=== PATIENT | male | born 1950 | race Caucasian/White ===

== ENCOUNTER → 2019-12-26 11:20 | Outpatient (CLI) | payer MEDICARE, OTHER, SELFPAY ==
[2019-12-27 14:35] LABS: COVID19 Sendout Not Detected (Not Detect)
== END ==
PROVIDERS: PCP Family Medicine; Visit Provider Physician Assistant
DX: Z01.812 Encounter for preprocedural laboratory examination (principal)
CPT/HCPCS: 87635

== ENCOUNTER 2019-12-29 10:03 | Day surgery (SDC) | payer MEDICARE, OTHER, SELFPAY ==
--- NOTE | 2019-12-29 | PATH_ITS ---
[facility] Accession Number: [id number] . 01 Material submitted: . PART A: gastrointestinal site - Z-LINE PART B: colon - CECAL POLYP PART C: colon - ASCENDING COLON POLYP PART D: colon - DESCENDING COLON POLYP PART E: rectum - RECTAL POLYP . 01 Clinical history: . A: RULE OUT [facility] . 02 Diagnosis: A. Z-Line, Biopsy: Squamocolumnar junctional mucosa with no diagnostic abnormality. Negative for intestinal metaplasia. Negative for dysplasia and malignancy. . B. Cecum, Polyp, Biopsy: Tubular adenoma. . C. Ascending Colon, Polyp, Biopsy: Sessile serrated adenoma. . D. Descending Colon, Polyp, Biopsy: Hyperplastic polyp. . E. Rectum, Polyp, Biopsy: Inflammatory polyp. [facility] 01/03/2020 1258 Local . 02 Electronically signed: . Lala Herrera MD, Pathologist NPI- [id number] . 01 Gross description: . A. Specimen A is received in formalin, labeled Z-line and consists of a 0.2 x 0.2 x 0.2 cm silva fragment of soft tissue, which is entirely submitted in cassette A1. B. Specimen B is received in formalin, labeled cecal polyp and consists of three silva fragments of soft tissue, measuring 1.0 x 0.7 x 0.2 cm in aggregate. The specimen is entirely submitted in cassette B1. C. Specimen C is received in formalin, labeled ascending colon polyp and consists of two silva fragments of soft tissue, measuring 1.2 x 0.8 x 0.4 cm in aggregate. The specimen is entirely submitted in cassette C1. D. Specimen D is received in formalin, labeled descending colon polyp and consists of a 0.2 x 0.2 x 0.2 cm silva fragment of soft tissue, which is entirely submitted in cassette D1. E. Specimen E is received in formalin, labeled rectal polyp and consists of a 0.2 x 0.2 x 0.2 cm. silva fragment of soft tissue, which is entirely submitted in cassette E1. ([id number]) /[facility] 12/30/2019 1744 Local . 02 Pathologist provided ICD-10: D12.0, D12.2, K21.9 . 02 CPT . 833880, 420905, [id number], [id number], [id number] Performed at: 01 [facility] [address] [place] [address], [place], [place] [id number] MD Mike Craig MD Phone: [phone] Performed at: 02 [facility] [address] [place], [place] [id number] MD Lala Herrera MD Phone: [phone]
[2019-12-29 10:19] VITALS: BP 154/85; PULSE 78; RESP 16; TEMP 36.4; O2SAT 98; BMI 30.5
[2019-12-29] MEDS: SODIUM CHLORIDE 0.9% 1,000 ML 200 ML IV (10:33)
--- NOTE | 2019-12-29 11:00 | PM.HP.1 ---
History of Present Illness History of Present Illness [place] [facility] [place] History Family & Social History Social History: household members spouse Tobacco & Substance use: Smoking Status Never smoker alcohol intake current alcohol intake frequency a few times a week Substance Use Type marijuana Meds Home Medications and Allergies Home Medications Medication Instructions Recorded Confirmed Type finasteride 5 mg PO DAILY 12/29/19 12/29/19 History gabapentin 300 mg PO BID 12/29/19 12/29/19 History venlafaxine [Effexor XR] 150 mg PO DAILY 12/29/19 12/29/19 History zolpidem [Ambien] 10 mg PO BEDTIME 12/29/19 12/29/19 History Allergies Allergy/AdvReac Type Severity Reaction Status Date / Time No Known Drug Allergies Allergy Verified 12/29/19 10:16 Review of Systems Review of Systems ROS: Yes All systems reviewed with the patient and are negative except as otherwise documented Exam Vital Signs (past 8 hours): - 12/29/19 10:19 Temperature 97.6 F Pulse Rate 78 Respiratory Rate 16 Blood Pressure 154/85 H Pulse Oximetry 98 Oxygen Delivery Method Room Air Narrative Exam Narrative: Awake alert and oriented x3, pupils equal round reactive to light, oropharynx clear, heart regular rate and rhythm, lungs clear to auscultation bilaterally, abdomen nontender and nondistended, extremities without edema, no gross neurologic deficits noted Assessment & Plan Assessment & Plan narrative: GERD and due for colon cancer screening. EGD and colonoscopy today. COVID-19 COVID-19 status: Negative
[2019-12-29] MEDS: MIDAZOLAM 5 MG/5 ML VIAL IV ×2 (11:04→11:17)
[2019-12-29] MEDS: fentaNYL 250 MCG/5 ML INJ IV (11:04)
--- NOTE | 2019-12-29 11:11 | P.OP.ENDO_ITS ---
Operative Date/Time/Diagnoses Date of procedure: 12/29/19 Procedure & Clinicians Study performed: EGD with biopsy Moderate conscious sedation was administered by the endoscopy nurse and supervised by the endoscopist. The following parameters were monitored: Oxygen saturation, heart rate, blood pressure, and response to care. 5 mg midazolam and 100 mcg fentanyl given Same procedure as scheduled: Yes Indications: GERD Procedure Notes Procedure in detail: Prior to the procedure, history and physical was performed, and patient medications and allergies were reviewed. Preprocedure nursing history and assessment was reviewed. Patient identification and proposed procedure were verified by the physician and nurse in the procedure room. The physical status of the patient was reassessed after the procedure. After informed consent was obtained including risks, benefits, and alternatives, the scope was passed under direct vision. Throughout the procedure, the patient's blood pressure, pulse, and oxygen saturations were monitored continuously. The upper endoscope was introduced through the mouth and advanced to the 2nd portion of the duodenum. Retroflexion was performed in the stomach. The patient tolerated the procedure well. The examined esophagus was normal appearing except for a slightly irregular Z- line characterized by a 5 mm tongue of salmon-colored mucosa extending above the gastroesophageal junction. This was biopsied to rule out Manning's esophagus. GE junction located at 42 cm The entire examined stomach was normal appearing The 1st and 2nd portions of the duodenum were normal appearing Impression: Normal esophagus except for slightly irregular Z-line, biopsied Normal appearing stomach Normal appearing duodenum Complications: other (EBL minimal. No complications) Post-procedure Plan for aftercare: Follow-up biopsy results Follow an anti-reflux diet and lifestyle Proceed with colonoscopy today
--- NOTE | 2019-12-29 11:35 | PM.OP.ENDO ---
Operative Date/Time/Diagnoses Date of procedure: 12/29/19 Procedure & Clinicians Study performed: Colonoscopy with cold snare polypectomy Moderate conscious sedation was administered by the endoscopy nurse and supervised by the endoscopist. The following parameters were monitored: Oxygen saturation, heart rate, blood pressure, and response to care. 2 mg midazolam given plus medications used during EGD. Same procedure as scheduled: Yes Indications: Colon cancer screening. Personal history of colon polyps. Family history of colon cancer in a first-degree relative. Most recent colonoscopy was 5 years ago. Procedure Notes Procedure in detail: Prior to the procedure, history and physical was performed, and patient medications and allergies were reviewed. Preprocedure nursing history and assessment was reviewed. Patient identification and proposed procedure were verified by the physician and nurse in the procedure room. The physical status of the patient was reassessed after the procedure. After informed consent was obtained including risks, benefits, and alternatives, the scope was passed under direct vision. Throughout the procedure, the patient's blood pressure, pulse, and oxygen saturations were monitored continuously. The colonoscope was introduced through the anus and advanced to the cecum as identified by the appendiceal orifice and ileocecal valve. The patient tolerated the procedure well. Bowel prep was deemed adequate to detect polyps greater than 5 mm. Digital rectal and perianal examinations were unremarkable. Retroflexion in the rectum revealed grade 1 internal hemorrhoids. Many small and medium mouthed diverticula noted throughout the entire colon. Four sessile polyps measuring 3-7 mm in diameter were removed from the cecum, ascending colon, descending colon, and rectum using a cold snare and were retrieved Impression: Four 3-7mm polyps removed from the cecum, ascending colon, descending colon, and rectum Pancolonic diverticulosis Internal hemorrhoids Sedation minutes: 30 Complications: other (EBL minimal. No complications) Post-procedure Plan for aftercare: Follow-up pathology results Repeat colonoscopy at a date to be determined based on pathology results Resume home medications High fiber diet Patient has a contact number available for emergencies. The signs and symptoms of potential delayed complications were discussed with the patient. Return to normal activities tomorrow. Written discharge instructions were provided to the patient. Discharge home with escort
[2019-12-29 11:39] VITALS: BP 106/59; BP 128/72; PULSE 66; PULSE 67; RESP 19; RESP 20; TEMP 37.2; O2SAT 67; O2SAT 97
[2019-12-29 11:44] VITALS: BP 115/69; BP 128/67; PULSE 63; PULSE 64; RESP 19; RESP 20; O2SAT 96
[2019-12-29 11:59] VITALS: BP 119/76; PULSE 63; RESP 20; TEMP 37.2; O2SAT 96
--- NOTE | 2019-12-29 13:57 | SUR.PHASEII ---
Report on pt from DIONISIO Sánchez. pt dressed already and sitiing up in bed one set of vitals taken by Dima Lopez, VSS pt trying to get a hold of since our attempts have failed, iv dcd by DIONISIO Sánchez and site clear with aries. Pt drinking gingerale without problems
[2019-12-29 13:59] VITALS: BP 159/85; PULSE 85; RESP 16; TEMP 36.4; O2SAT 100
== END 2019-12-29 12:17 | disposition home or self-care (01) ==
PROVIDERS: PCP Family Medicine; Referring Provider Internal Medicine; Visit Provider Internal Medicine
PROC: 0DJ08ZZ Inspection of Upper Intestinal Tract, Via Natural or Artificial Opening Endoscopic (ICD-10-PCS; CPT 43235; principal; 2019-12-29 11:00)
PROC: 0DJD8ZZ Inspection of Lower Intestinal Tract, Via Natural or Artificial Opening Endoscopic (ICD-10-PCS; CPT 45378; 2019-12-29 11:00)
DX: Z12.11 Encounter for screening for malignant neoplasm of colon (principal); K21.9 Gastro-esophageal reflux disease without esophagitis; D12.2 Benign neoplasm of ascending colon; D12.0 Benign neoplasm of cecum; K63.5 Polyp of colon; K62.1 Rectal polyp; K64.0 First degree hemorrhoids; K57.30 Diverticulosis of large intestine without perforation or abscess without bleeding; Z86.010 Personal history of colon polyps; Z80.0 Family history of malignant neoplasm of digestive organs
CPT/HCPCS: 45385; 43239; J2250; J3010